=== PATIENT | male | born 1940 | race Caucasian/White ===

== ENCOUNTER 2017-12-05 14:46 | Inpatient (IN) | payer OTHER ==
[~2017-12-05] VITALS: Ht 175.3 cm; Wt 90.4 kg
[2017-12-05 15:37] LABS: Basophils # (auto) 0 uL; Basophils % (auto) 0.4 % (0.0-2.0); Eosinophils # (auto) 0.1 uL; Eosinophils % (auto) 2.3 % (0.0-7.0); Hematocrit 37.9 % (41.0-53.0); Hemoglobin 12.3 g/dL (13.5-17.5); Lymphocytes # (auto) 1.3 uL; Lymphocytes % (auto) 21.5 % (10.0-50.0); Mean Corpuscular Hemoglobin 32.2 pg (28.0-32.0); Mean Corpuscular Hgb Conc. 32.5 g/dL (32.0-36.0); Mean Corpuscular Volume 99.2 fL (80.0-100.0); Monocytes # (auto) 0.5 uL; Monocytes % (auto) 7.5 % (0.0-12.0); Neutrophils # (auto) 4.2 uL; Neutrophils % (auto) 68.3 % (37.0-80.0); Nucleated Red Blood Cells % 0.1 %; Platelet Count (auto) 172 10^3/uL (140-450); Red Blood Cells 3.82 10^6/uL (4.5-5.90); Red Cell Distribution Width 12.8 % (11.8-14.3); White Blood Cell 6.2 10^3/uL (4.4-10.8)
[2017-12-05 16:03] LABS: Alanine Aminotransferase 60 U/L (16-61); Albumin 3.7 g/dL (3.4-5.0); Alkaline Phosphatase 92 U/L (45-117); Anion Gap 7 (5-15); Aspartate Aminotransferase 43 U/L (15-37); BUN/Creatinine Ratio 36.4; Bilirubin, Total 0.3 mg/dL (0.2-1.0); Blood Urea Nitrogen 43 mg/dL (7-18); Calcium 8.4 mg/dL (8.5-10.1); Carbon Dioxide 22 mmol/L (21-32); Chloride 110 mmol/L (98-107); GFR African American 77 mL/min; GFR Non-African American 64 mL/min; Glucose 153 mg/dL (74-106); Magnesium 2.9 mg/dL (1.6-2.6); Sodium 139 mmol/L (136-145); Total Protein 7.5 g/dL (6.4-8.2)
[2017-12-05] MEDS ORDERED: DOPamine 1600MCG/ML D5W 250 ML IV ONE (17:15)
[2017-12-05] MEDS ORDERED: NITROGLYCERIN 0.4 MG SL TAB SL PRN (17:45)
[2017-12-05] MEDS ORDERED: MORPHINE SULFATE 4 MG/ML SYR/VIAL IV PRN (17:45)
[2017-12-05 17:49] LABS: Urine Bacteria NONE SEEN /hpf (None Seen); Urine Blood Negative /uL (Negative); Urine Hyaline Cast FEW /lpf (0 - 2); Urine Mucus FEW (None Seen); Urine Specific Gravity 1.029 (1.001-1.035); Urine WBC 2 /hpf (0 - 3)
[2017-12-05] MEDS ORDERED: IOHEXOL 350 MG/ML 100ML IJ ONE (18:50)
[2017-12-05 19:00] VITALS: BP 153/67
[2017-12-05 20:00] VITALS: BP 152/55
[2017-12-05 21:00] VITALS: BP_SYST 146; BP_SYST 152; BP_DIAS 55; BP_DIAS 69
[2017-12-05 22:00] VITALS: BP 137/66
[2017-12-05 23:00] VITALS: BP 145/73
[2017-12-05] MEDS: DOPamine 1600MCG/ML D5W 250 ML IV SCH (23:23)
[2017-12-06] VITALS (22 sets, daily range): BP systolic 110–155; BP diastolic 44–96
[2017-12-06 05:59] LABS: Basophils # (auto) 0 uL; Basophils % (auto) 0.3 % (0.0-2.0); Eosinophils # (auto) 0 uL; Eosinophils % (auto) 0.2 % (0.0-7.0); Hematocrit 37.9 % (41.0-53.0); Hemoglobin 13.1 g/dL (13.5-17.5); Mean Corpuscular Hemoglobin 33.1 pg (28.0-32.0); Mean Corpuscular Hgb Conc. 34.5 g/dL (32.0-36.0); Monocytes # (auto) 1.3 uL; Monocytes % (auto) 13.9 % (0.0-12.0); Neutrophils # (auto) 7.2 uL; Neutrophils % (auto) 75.6 % (37.0-80.0); Platelet Count (auto) 176 10^3/uL (140-450); Red Blood Cells 3.95 10^6/uL (4.5-5.90); Red Cell Distribution Width 12.7 % (11.8-14.3); White Blood Cell 9.5 10^3/uL (4.4-10.8)
[2017-12-06 06:06] LABS: Anion Gap 9 (5-15); Blood Urea Nitrogen 33 mg/dL (7-18); Calcium 8.7 mg/dL (8.5-10.1); Carbon Dioxide 23 mmol/L (21-32); Chloride 106 mmol/L (98-107); Glucose 151 mg/dL (74-106); Magnesium 2.4 mg/dL (1.6-2.6); Potassium 4.3 mmol/L (3.5-5.1); Sodium 138 mmol/L (136-145)
[2017-12-06 06:09] LABS: BUN/Creatinine Ratio 38.4; GFR African American 111 mL/min; GFR Non-African American 92 mL/min
[2017-12-06 06:38] LABS: INR 1.01 (0.9-1.15); Partial Thromboplastin Time 26.1 sec (22.64-33.71)
[2017-12-06 08:27] LABS: Phosphorus 3.4 mg/dL (2.5-4.90)
[2017-12-06] MEDS: SODIUM CHLORIDE 0.9% 1,000 ML IV SCH ×2 (08:28→17:39)
[2017-12-06] MEDS: PHENYTOIN SODIUM 100 MG CAP PO SCH (08:34)
[2017-12-06] MEDS: DOPamine 1600MCG/ML D5W 250 ML IV SCH (11:49)
[2017-12-06] MEDS: ACETAMINOPHEN 650 mg PER 20 mL UD PO PRN ×2 (12:00→21:18)
[2017-12-06] MEDS ORDERED: LIDOCAINE 2%HCL (LOCAL ANESTH.) INJ 20ML MDV ONE (14:13)
[2017-12-06] MEDS ORDERED: MIDAZOLAM HCL 1MG/1ML-2 ML VIAL ONE (14:24)
[2017-12-06] MEDS ORDERED: fentaNYL CITRATE 100 MCG/2 ML VL ONE (14:24)
[2017-12-06] MEDS ORDERED: VANCOMYCIN HCL 1000 MG VL ONE (14:40)
[2017-12-06] MEDS ORDERED: ceFAZolin 1GM/50ML 50 ML IV ONE (14:41)
[2017-12-06] MEDS ORDERED: VANCOMYCIN 1GM/250ML 250 ML IV ONE (14:45)
[2017-12-06] MEDS ORDERED: PHE100C PO (18:03)
[2017-12-06] MEDS ORDERED: DILT120T8 PO (18:03)
[2017-12-06] MEDS ORDERED: LISI40TA PO (18:03)
[2017-12-06] MEDS ORDERED: ASPI81CH43 PO (18:03)
[2017-12-07] MEDS ORDERED: VANCOMYCIN 1GM/250ML 250 ML IV SCH (02:45)
[2017-12-07 05:01] VITALS: BP 134/61
[2017-12-07] MEDS: ACETAMINOPHEN 650 mg PER 20 mL UD PO PRN (05:06)
[2017-12-07 06:27] LABS: Basophils # (auto) 0 uL; Basophils % (auto) 0.2 % (0.0-2.0); Eosinophils # (auto) 0 uL; Eosinophils % (auto) 0.5 % (0.0-7.0); Hematocrit 30.8 % (41.0-53.0); Hemoglobin 10.7 g/dL (13.5-17.5); Mean Corpuscular Hemoglobin 33.5 pg (28.0-32.0); Mean Corpuscular Hgb Conc. 34.7 g/dL (32.0-36.0); Mean Corpuscular Volume 96.6 fL (80.0-100.0); Monocytes % (auto) 12.5 % (0.0-12.0); Neutrophils # (auto) 5.7 uL; Neutrophils % (auto) 73.8 % (37.0-80.0); Nucleated Red Blood Cells % 0.1 %; Platelet Count (auto) 126 10^3/uL (140-450); Red Blood Cells 3.19 10^6/uL (4.5-5.90); Red Cell Distribution Width 12.6 % (11.8-14.3); White Blood Cell 7.7 10^3/uL (4.4-10.8)
[2017-12-07 06:49] LABS: Calcium 7.9 mg/dL (8.5-10.1); Potassium 3.5 mmol/L (3.5-5.1)
[2017-12-07 08:00] VITALS: BP 122/69
[2017-12-07 09:00] VITALS: BP 122/69
[2017-12-07] MEDS: SODIUM CHLORIDE 0.9% 1,000 ML IV SCH (09:30)
[2017-12-07] MEDS: PHENYTOIN SODIUM 100 MG CAP PO SCH (09:32)
[2017-12-07] MEDS ORDERED: HYDROcodone-ACET 5/325MG TAB PO PRN (10:15)
[2017-12-07 11:15] VITALS: BP 122/69
[2017-12-07 13:00] VITALS: BP_SYST 116; BP_SYST 121; BP_DIAS 53; BP_DIAS 55; BP_DIAS 82
== END 2017-12-07 13:50 | disposition home or self-care (01) | DRG 244 ==
LOC: ER 14:46 → EDBD 14:46 → TELE 14:47 → TELE-EAST 12-06 17:59
PROVIDERS: ADMIT Internal Medicine; ATTEND Internal Medicine
PROC: 0JH606Z Insertion of Pacemaker, Dual Chamber into Chest Subcutaneous Tissue and Fascia, Open Approach (ICD-10-PCS; principal; 2017-12-05)
PROC: 02H63JZ Insertion of Pacemaker Lead into Right Atrium, Percutaneous Approach (ICD-10-PCS; 2017-12-05)
PROC: 02HK3JZ Insertion of Pacemaker Lead into Right Ventricle, Percutaneous Approach (ICD-10-PCS; 2017-12-05)
PROC: B5171ZZ Fluoroscopy of Left Subclavian Vein using Low Osmolar Contrast (ICD-10-PCS; 2017-12-05)
DX: I44.2 Atrioventricular block, complete (principal); G40.909 Epilepsy, unspecified, not intractable, without status epilepticus; I11.9 Hypertensive heart disease without heart failure; E78.00 Pure hypercholesterolemia, unspecified; E78.5 Hyperlipidemia, unspecified; I48.0 Paroxysmal atrial fibrillation; I49.5 Sick sinus syndrome; N40.0 Benign prostatic hyperplasia without lower urinary tract symptoms; R73.9 Hyperglycemia, unspecified; Z79.82 Long term (current) use of aspirin
CPT/HCPCS: 33208; 36415; 71045; 71275; 75820; 80048; 80053; 81001; 83735; 83880; 84100; 84443; 84484; 85025; 85379; 85610; 85730; 93005; 93306; 94761; 96374; 99152; C1785; J0690; J2250

== ENCOUNTER 2019-06-22 00:45 | Emergency (ER) | payer OTHER ==
[~2019-06-22] VITALS: Ht 175.3 cm; Wt 81.6 kg
[~2019-06-22 00:45] MED LIST: ASPI81CH43 PO; DILT120T8 PO; LISI40TA PO; PHE100C PO
[2019-06-22 01:56] LABS: Urine Bacteria FEW /hpf (None Seen); Urine Blood TRACE /uL (Negative); Urine Mucus FEW (None Seen); Urine WBC 76 /hpf (0 - 3)
[2019-06-22 02:02] LABS: Basophils # (auto) 0 uL; Basophils % (auto) 0.1 % (0.0-2.0); Eosinophils # (auto) 0.1 uL; Eosinophils % (auto) 0.9 % (0.0-7.0); Hematocrit 35.3 % (41.0-53.0); Hemoglobin 12.2 g/dL (13.5-17.5); Lymphocytes # (auto) 0.7 uL; Lymphocytes % (auto) 7.1 % (10.0-50.0); Mean Corpuscular Hemoglobin 32.8 pg (28.0-32.0); Mean Corpuscular Hgb Conc. 34.4 g/dL (32.0-36.0); Mean Corpuscular Volume 95.3 fL (80.0-100.0); Monocytes # (auto) 0.9 uL; Monocytes % (auto) 8.4 % (0.0-12.0); Neutrophils # (auto) 8.7 uL; Neutrophils % (auto) 83.5 % (37.0-80.0); Platelet Count (auto) 143 10^3/uL (140-450); White Blood Cell 10.4 10^3/uL (4.4-10.8)
[2019-06-22 02:20] LABS: Albumin 3.7 g/dL (3.4-5.0); BUN/Creatinine Ratio 27.6; Calcium 8.2 mg/dL (8.5-10.1); Potassium 3.9 mmol/L (3.5-5.1)
[2019-06-22 02:22] LABS: Bilirubin, Total 0.5 mg/dL (0.2-1.0)
[2019-06-22] MEDS ORDERED: SODIUM CHLORIDE 0.9% 1,000 ML IVB ONE (07:06)
[2019-06-22] MEDS ORDERED: PROMETHAZINE HCL 25 MG/ML 1ML IV ONE (07:15)
[2019-06-22] MEDS ORDERED: MORPHINE SULFATE 4 MG/ML SYR/VIAL IV ONE (07:15)
[2019-06-22] MEDS ORDERED: cefTRIAXone 1GM/50ML D5W 50 ML IV ONE (07:15)
[2019-06-22 10:14] VITALS: BP 94/70
== END 2019-06-22 10:32 | disposition home or self-care (01) ==
LOC: EDBD 00:45 → ER 00:45
DX: K52.9 Noninfective gastroenteritis and colitis, unspecified (principal); N39.0 Urinary tract infection, site not specified; K90.49 Malabsorption due to intolerance, not elsewhere classified; I10 Essential (primary) hypertension; G40.909 Epilepsy, unspecified, not intractable, without status epilepticus; E78.5 Hyperlipidemia, unspecified; Z79.899 Other long term (current) drug therapy; Z95.0 Presence of cardiac pacemaker
CPT/HCPCS: 36415; 80053; 81001; 83690; 85025; 93005; 96365; 96375; 99284; J0696; J2270; J2550; J7030

== ENCOUNTER 2023-06-25 19:05 | Emergency (ER) | payer OTHER ==
[~2023-06-25] VITALS: Ht 175.3 cm; Wt 78.2 kg
[~2023-06-25 19:05] MED LIST changes: -LISI40TA PO; +LISI40TA16 PO; -PHE100C PO; +PHEN1CAP60 PO
[2023-06-25 21:29] VITALS: BP 167/78; PULSE 69; RESP 18; TEMP 98; O2SAT 98
== END 2023-06-25 21:35 | disposition home or self-care (01) ==
LOC: ER 19:05
DX: S01.81XA Laceration without foreign body of other part of head, initial encounter (principal); E78.5 Hyperlipidemia, unspecified; I10 Essential (primary) hypertension; Z87.440 Personal history of urinary (tract) infections; W18.09XA Striking against other object with subsequent fall, initial encounter; Y93.89 Activity, other specified; Y92.89 Other specified places as the place of occurrence of the external cause; Y99.8 Other external cause status
CPT/HCPCS: 70450

== ENCOUNTER 2024-12-07 02:05 | Emergency (ER) | payer OTHER ==
[~2024-12-07] VITALS: Ht 175.3 cm; Wt 79.5 kg
[~2024-12-07 02:05] MED LIST changes: +PHEN1CAP38 PO; -PHEN1CAP60 PO
[2024-12-07] MEDS: IPRATROPIUM BROM 0.5 MG/2.5ML INH SOL NEB ONE (03:14)
[2024-12-07] MEDS: ALBUTEROL SULF 2.5 MG/0.5ML(0.5%) NEB SOLN NEB ONE (03:14)
--- NOTE | 2024-12-07 03:19 | ED.PDOC ---
History of Present Illness HPI Comments 84-year-old male came to ER via EMS for shortness of breath. Patient had a ground level fall a month ago, fell flat on his face, and since then patient has been having nasal pain. Patient never went for a checkup regarding this fall. Persistent nasal pain and nasal congestion which worsened the past few days, with wheezing, nasal tenderness and shortness of breath. Patient saturating at 96% on room air. Chief Complaint: Shortness of Breath Time Seen by MD: 03:19 Primary Care Provider: ANGEL Menendez Notes: Medical Affairs Leader Notes Allergies: Coded Allergies: NO KNOWN ALLERGIES (Unverified , 12/05/17) Home Meds Reported Medications Phenytoin Sodium (DILANTIN CAPSULE) 100 Mg Cp, 300 MG PO DAILY for 30 Days 12/06/17 Aspirin (Asa) 81 Mg Ch, 325 MG PO DAILY 12/06/17 Lisinopril (Lisinopril) 40 Mg Tab, 40 MG PO DAILY for 30 Days, MG 12/06/17 Diltiazem Hcl (Cardizem) 120 Mg Tab, 240 MG PO DAILY, TAB 12/06/17 Information Source: Patient Mode of Arrival: EMS Severity: Moderate Timing: Days Duration: Since onset Past Medical History PAST MEDICAL HISTORY: AFIB, High Lipids, HTN, Seizures, UTI'S Surgical History: Pacemaker Family History Family History: Reviewed,noncontributory to illness Social History Smoker: Non-Smoker Alcohol: Denies ETOH Use Drugs: Denies Drug Use Lives In: Home Constitutional: denies: chills, diaphoresis, fatigue, fever, malaise, sweats, weakness, others EENTM: reports: nose congestion, nose pain; denies: blurred vision, double vision, ear bleeding, ear discharge, ear drainage, ear pain, ear ringing, eye pain, eye redness, hearing loss, mouth pain, mouth swelling, nasal discharge, nose bleeding, photophobia, tearing, throat pain, throat swelling, voice changes, others Respiratory: reports: orthopnea, SOB at rest, shortness of breath, wheezing; denies: cough, hemoptysis, SOB with excertion, stridor, others Cardiovascular: denies: chest pain, dizzy spells, diaphoresis, Dyspnea on exertion, edema, irregular heart beat, left arm pain, lightheadedness, palpitations, PND, syncope, others Gastrointestinal: denies: abdomen distended, abdominal pain, blood streaked bowels, constipated, diarrhea, dysphagia, difficulty swallowing, hematemesis, melena, nausea, poor appetite, poor fluid intake, rectal bleeding, rectal pain, vomiting, others Genitourinary: denies: burning, dysuria, flank pain, frequency, hematuria, incontinence, penile discharge, penile sore, pain, testicle pain, testicle swelling, urgency, others Neurological: denies: dizziness, fainting, headache, left sided numbness, left sided weakness, numbness, paresthesia, pre-existing deficit, right sided numbness, right sided weakness, seizure, speech problems, tingling, tremors, weakness, others Musculoskeletal: denies: back pain, gout, joint pain, joint swelling, muscle pain, muscle stiffness, neck pain, others Integumetry: denies: bruises, change in color, change in hair/nails, dryness, laceration, lesions, lumps, rash, wounds, others Allergic/Immunocompromised: denies: Difficulty Healing, Frequent Infections, Hives, Itching, others Hematologic/Lymphatic: denies: anemia, blood clots, easy bleeding, easy bruising, swollen glands, others Endocrine: denies: excessive hunger, excessive sweating, excessive thirst, excessive urination, flushing, intolerance to cold, intolerance to heat, unexplained weight gain, unexplained weight loss, others Psychiatric: denies: anxiety, bipolar disorder, depression, hopeless, panic disorder, schizophrenia, sleepless, suicidal, others Physical Exam General Appearance: Moderate Distress, Normal HEENT: Normal ENT Inspection, Pharynx Normal, TMs Normal Neck: Full Range of Motion, Non-Tender, Normal, Normal Inspection Respiratory: Chest Non-Tender, Lungs Clear, No Accessory Muscle Use, No Respiratory Distress, Normal Breath Sounds Cardiovascular: No Edema, No JVD, No Murmur, No Gallop, Normal Peripheral Pulses, Regular Rate/Rhythm Breast Exam: Deferred Gastrointestinal: No Organomegaly, Non Tender, No Pulsatile Mass, Normal Bowel Sounds, Soft Genitalia: Deferred Pelvic: Deferred Rectal: Deferred Extremities: No calf tenderness, Normal capillary refill, Normal inspection, Normal range of motion, Non-tender, No pedal edema Musculoskeletal : Apperance: Normal 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 Was a procedure done?: No EKG EKG : Pulse Rate (adult): 76 Cardiac Rhythm: Paced Differential Dx Considerations may include: Nasal congestion, nasal fracture, pneumonia, upper respiratory infection X-Ray, Labs, Meds, VS Vital Signs Date Time Temp Pulse Resp B/P (MAP) Pulse Ox O2 Delivery O2 Flow Rate FiO2 12/07/24 03:19 76 12/07/24 03:14 20 96 Room Air* 0 21 12/07/24 02:22 16 96 Room Air* 0 21 12/07/24 02:12 98.4 69 16 158/75 (102) 96 12/07/24 02:12 76 Current Medications Medications (Trade) Dose Ordered Sig/Adriana Route Start Time Stop Time Status Last Admin Albuterol (Ventolin Medneb) 5 mg ONCE ONCE NEB 12/07/24 03:15 12/07/24 03:16 DC 12/07/24 03:14 Ipratropium [place] (Atrovent Medneb) 0.5 mg ONCE ONCE NEB 12/07/24 03:15 12/07/24 03:16 DC 12/07/24 03:14 Exam: CT MAXILLOFACIAL WITHOUT History: fall Comparison Study: CT head 06/25/2023 TECHNIQUE: Noncontrast CT imaging of the maxillofacial region was performed with coronal and sagittal reformatted images. Radiation optimization: All CT scans at this facility use at least one of these dose optimization techniques: automated exposure control mA and/or kV adjustment per patient size (includes targeted exams where dose is matched to clinical indication) or iterative reconstruction. Radiation Dose Information: CT Dose: CTDI volume is 65.4 mGy. Dose-length product is 1431.2 mGy*cm FINDINGS: Evaluation of solid organs is limited due to lack of intravenous contrast use. Findings: No discrete fracture. The nasal bone is intact. The globes appear grossly intact. No significant fat stranding. Mild mucosal sinus thickening of the maxillary sinuses and ethmoid air cells with occlusion of the left frontoethmoid recess and left ostiomeatal unit. Mastoid air cells are well aerated. Degenerative changes of the visualized cervical spine. Bilateral carotid artery calcifications. Visualized intracranial structures demonstrate cerebral atrophy with cavum septum pellucidum IMPRESSION: 1. No acute findings. 2. Ethmoid and maxillary sinus disease. Patient was given DuoNeb treatment secondary to of wheezes. Solu-Medrol in Rocephin was given for possible sinusitis. The patient will be discharged with Augmentin Medrol dose pack and Flonase prescription. He will take Afrin [id number]. Time of 1ST Reevaluation: 03:13 Reevaluation 1ST: Unchanged Patient Education/Counseling: Diagnosis, Treatment Family Education/Counseling: No Family Present Departure 1 Departure Time of Disposition: 05:07 Impression: Primary Impression: Ground-level fall Additional Impression: Sinusitis Qualified Codes: J01.20 - Acute ethmoidal sinusitis, unspecified Disposition: HOME / SELF CARE / HOMELESS Condition: Stable Additional Instructions: Reassessed patient, vital signs stable. Denies any new symptoms. Patient is able to tolerate PO and ambulate/be mobile at their baseline without concern. Risks and benefits of all medications given or prescribed, if any, discussed. All lab work, imaging and diagnostic studies were reviewed by me. The patient was counseled extensively on my clinical impression, diagnosis, expected course of the disease, and plan, including their follow-up care. Will discharge patient. Patient instructed to follow up with Primary Care Physician within 24-48 hours. Strict return precautions given for further exacerbation of symptoms or for new symptoms. The patient was given the opportunity to ask questions and all questions were answered by myself and the nursing/tech staff. Patient is in agreement with the care plan. The patient verbally expressed understanding of th e discharge instructions, including the reasons to return to the Emergency Department. The patient can have Afrin [id number]. e-Prescriptions Amoxicillin & Pot Clavulanate (AUGMENTIN TABLET) 875 Mg Tb 875 MG PO BID, #1 TAB Prov: THOM WISE MD 12/07/24 Fluticasone Propionate (Nasal) (Flonase Allergy Relief) 50 Mcg/Act Spr 50 MCG NA 2XW, #1 SPRAY Prov: THOM WISE MD 12/07/24 Discharged With: Self Critical Care Note Critical Care Time?: Yes (35 min-critical care time only) Critical care comment: Shortness of breath Stability Stability form required: No Heart Score Heart Score: Heart Score Response (Comments) Value History N/A 0 EKG N/A 0 Age N/A 0 Risk Factors N/A 0 Troponin N/A 0 Total 0 I personally scribed for THOM WISE MD ([email or web address]) on 12/07/24 at 03:19. El ectronically submitted by Sagar Hidalgo ([email or web address]). I personally scribed for THOM WISE MD ([email or web address]) on 12/07/24 at 05:01. Electronically submitted by Sagar Hidalgo ([email or web address]). THOM WISE MD Dec 07, 2024 03:19
--- NOTE | 2024-12-07 04:44 | DVH ---
Exam: CT MAXILLOFACIAL WITHOUT History: fall Comparison Study: CT head 06/25/2023 TECHNIQUE: Noncontrast CT imaging of the maxillofacial region was performed with coronal and sagittal reformatted images. Radiation optimization: All CT scans at this facility use at least one of these dose optimization alok hniques: automated exposure control mA and/or kV adjustment per patient size (includes targeted exam s where dose is matched to clinical indication) or iterative reconstruction. Radiation Dose Information: CT Dose: CTDI volume is 65.4 mGy. Dose-length product is 1431.2 mGy*cm FINDINGS: Evaluation of solid organs is limited due to lack of intravenous contrast use. Findings: No discrete fracture. The nasal bone is intact. The globes appear grossly intact. No significant fat stranding. Mild mucosal sinus thickening of the maxillary sinuses and ethmoid air cells with occlusi on of the left frontoethmoid recess and left ostiomeatal unit. Mastoid air cells are well aerated. De generative changes of the visualized cervical spine. Bilateral carotid artery calcifications. Visuali zed intracranial structures demonstrate cerebral atrophy with cavum septum pellucidum IMPRESSION: 1. No acute findings. 2. Ethmoid and maxillary sinus disease.
[2024-12-07 05:00] VITALS: BP 143/71; PULSE 79; RESP 16; TEMP 97.7; O2SAT 96
[2024-12-07] MEDS ORDERED: AUG875T PO (05:10)
[2024-12-07] MEDS ORDERED: FLUT1SPR5 (05:10)
[2024-12-07] MEDS: cefTRIAXone 2GM/50ML D5W 50 ML IV ONE (05:11)
[2024-12-07] MEDS: methylPREDNISolone SOD SUCC 125 MG/2 ML VL IV ONE (05:12)
[2024-12-07] MEDS: ACETAMINOPHEN 325 MG TAB PO ONE (05:38)
--- NOTE | 2024-12-07 06:34 | ECG ---
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
== END 2024-12-07 05:49 | disposition home or self-care (01) ==
LOC: EDUNIT# 02:05 → EDSEX 02:05 → ER 02:05 → EDBD 02:05 → ER 05:49
DX: J32.9 Chronic sinusitis, unspecified (principal); I10 Essential (primary) hypertension; Z79.82 Long term (current) use of aspirin; Z79.899 Other long term (current) drug therapy; Z87.440 Personal history of urinary (tract) infections; Z95.0 Presence of cardiac pacemaker; W18.30XA Fall on same level, unspecified, initial encounter; Y93.89 Activity, other specified; Y92.89 Other specified places as the place of occurrence of the external cause; Y99.8 Other external cause status
CPT/HCPCS: 70486; 93005; 94640; 96365; 96375; 99285; J0696; J2919

== ENCOUNTER 2025-02-19 16:46 | Emergency (ER) | payer OTHER ==
[~2025-02-19] VITALS: Ht 175.3 cm; Wt 80.4 kg
[~2025-02-19 16:46] MED LIST changes: +AUG875T PO; +FLUT1SPR5
--- NOTE | 2025-02-19 18:30 | ECG ---
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
--- NOTE | 2025-02-19 18:47 | ED.PDOC ---
History of Present Illness HPI Comments 84-year-old male came to ER for generalized weakness. Patient has history of hypertension, Afib, status post pacemaker insertion 2017. States for the past 3 weeks, has been having intermittent episodes of weakness, especially during late afternoons, after working in the yard. About 2 hours ago, noted generalized weakness and fatigability. Noted slight bradycardia on 60s, with fluctuating blood pressure levels. Upon arrival, blood pressure was 126/69 mm Hg. Denies any acute chest pains shortness of breath Chief Complaint: Weakness Time Seen by MD: 18:46 Primary Care Provider: ANGEL Menendez Notes: Nurses Notes Allergies: Coded Allergies: NO KNOWN ALLERGIES (Unverified , 12/05/17) Home Meds Active Scripts Amoxicillin & Pot Clavulanate (AUGMENTIN TABLET) 875 Mg Tb, 875 MG PO BID, #20 T AB Prov:THOM WISE MD 12/07/24 Amoxicillin & Pot Clavulanate (AUGMENTIN TABLET) 875 Mg Tb, 875 MG PO BID, #1 TAB Prov:THOM WISE MD 12/07/24 Fluticasone Propionate (Nasal) (Flonase Allergy Relief) 50 Mcg/Act Spr, 50 MCG NA 2XW, #1 SPRAY Prov:THOM WISE MD 12/07/24 Reported Medications Phenytoin Sodium (DILANTIN CAPSULE) 100 Mg Cp, 300 MG PO DAILY for 30 Days 12/06/17 Aspirin (Asa) 81 Mg Ch, 325 MG PO DAILY 12/06/17 Lisinopril (Lisinopril) 40 Mg Tab, 40 MG PO DAILY for 30 Days, MG 12/06/17 Diltiazem Hcl (Cardizem) 120 Mg Tab, 240 MG PO DAILY, TAB 12/06/17 Information Source: Patient Mode of Arrival: Ambulatory Severity: Moderate Timing: Weeks Duration: Intermittent Past Medical History PAST MEDICAL HISTORY: AFIB, High Lipids, HTN, Seizures, UTI'S Surgical History: Pacemaker Family History Family History: Reviewed,noncontributory to illness Social History Smoker: Non-Smoker Alcohol: Denies ETOH Use Drugs: Denies Drug Use Lives In: Home Constitutional: reports: fatigue, weakness; denies: chills, diaphoresis, fever, malaise, sweats, others EENTM: denies: blurred vision, double vision, ear bleeding, ear discharge, ear drainage, ear pain, ear ringing, eye pain, eye redness, hearing loss, mouth pain, mouth swelling, nasal discharge, nose bleeding, nose congestion, nose pain, photophobia, tearing, throat pain, throat swelling, voice changes, others Respiratory: denies: cough, hemoptysis, orthopnea, SOB at rest, shortness of breath, SOB with excertion, stridor, wheezing, others Cardiovascular: denies: chest pain, dizzy spells, diaphoresis, Dyspnea on exertion, edema, irregular heart beat, left arm pain, lightheadedness, palpitations, PND, syncope, others Gastrointestinal: denies: abdomen distended, abdominal pain, blood streaked bowels, constipated, diarrhea, dysphagia, difficulty swallowing, hematemesis, melena, nausea, poor appetite, poor fluid intake, rectal bleeding, rectal pain, vomiting, others Genitourinary: denies: burning, dysuria, flank pain, frequency, hematuria, incontinence, penile discharge, penile sore, pain, testicle pain, testicle swelling, urgency, others Neurological: denies: dizziness, fainting, headache, left sided numbness, left sided weakness, numbness, paresthesia, pre-existing deficit, right sided numbness, right sided weakness, seizure, speech problems, tingling, tremors, weakness, others Musculoskeletal: denies: back pain, gout, joint pain, joint swelling, muscle pain, muscle stiffness, neck pain, others Integumetry: denies: bruises, change in color, change in hair/nails, dryness, laceration, lesions, lumps, rash, wounds, others Allergic/Immunocompromised: denies: Difficulty Healing, Frequent Infections, Hives, Itching, others Hematologic/Lymphatic: denies: anemia, blood clots, easy bleeding, easy bruising, swollen glands, others Endocrine: denies: excessive hunger, excessive sweating, excessive thirst, excessive urination, flushing, intolerance to cold, intolerance to heat, unexplained weight gain, unexplained weight loss, others Psychiatric: denies: anxiety, bipolar disorder, depression, hopeless, panic disorder, schizophrenia, sleepless, suicidal, others Physical Exam General Appearance: No Apparent Distress, Normal HEENT: Normal ENT Inspection, Pharynx Normal, TMs Normal Neck: Full Range of Motion, Non-Tender, Normal, Normal Inspection Respiratory: Chest Non-Tender, Lungs Clear, No Accessory Muscle Use, No Respiratory Distress, Normal Breath Sounds Cardiovascular: No Edema, No JVD, No Murmur, No Gallop, Normal Peripheral Pulses, Regular Rate/Rhythm Breast Exam: Deferred Gastrointestinal: No Organomegaly, Non Tender, No Pulsatile Mass, Normal Bowel Sounds, Soft Genitalia: Deferred Pelvic: Deferred Rectal: Deferred Extremities: No calf tenderness, Normal capillary refill, Normal inspection, Normal range of motion, Non-tender, No pedal edema Musculoskeletal : Apperance: Normal 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 Was a procedure done?: No EKG EKG : Pulse Rate (adult): 70 Cardiac Rhythm: NSR Comments Prolong TN interval Differential Dx Considerations may include: Anemia, electrolyte imbalance, weakness, dehydration X-Ray, Labs, Meds, VS Vital Signs Date Time Temp Pulse Resp B/P (MAP) Pulse Ox O2 Delivery O2 Flow Rate FiO2 02/19/25 18:47 70 02/19/25 18:00 98.2 85 18 126/69 (88) 96 98.2 Lab Test 02/19/25 21:57 02/19/25 19:59 02/19/25 19:02 02/19/25 18:20 Range/Units Troponin I High Sensitivity Pending 6 6 </=54 ng/L White Blood Count 7.4 4.4-10.8 10^3/uL Red Blood Count 3.91 L 4.5-5.90 10^6/uL Hemoglobin 12.5 L 13.5-17.5 g/dL Hematocrit 36.8 L 41.0-53.0 % Mean Corpuscular Volume 94.3 80.0-100.0 fL Mean Corpuscular Hemoglobin 31.9 28.0-32.0 pg Mean Corpuscular Hemoglobin Concent 33.8 32.0-36.0 g/dL Red Cell Distribution Width 13.5 11.8-14.3 % Platelet Count 219 140-450 10^3/uL Mean Platelet Volume 7.7 6.9-10.8 fL Neutrophils (%) (Auto) 52.1 37.0-80.0 % Lymphocytes (%) (Auto) 30.7 10.0-50.0 % Monocytes (%) (Auto) 10.9 0.0-12.0 % Eosinophils (%) (Auto) 6.1 0.0-7.0 % Basophils (%) (Auto) 0.2 0.0-2.0 % Neutrophils # (Auto) 3.8 1.6-8.6 10 ^3/uL Lymphocytes # (Auto) 2.3 0.4-5.4 10 ^3/uL Monocytes # (Auto) 0.8 0-1.3 10 ^3/uL Eosinophils # (Auto) 0.5 0-0.8 10 ^3/uL Basophils # (Auto) 0 0-0.2 10 ^3/uL Nucleated Red Blood Cells 0.0 % Sodium Level 137 136-145 mmol/L Potassium Level 4.6 3.5-5.1 mmol/L Chloride Level 104 98-107 mmol/L Carbon Dioxide Level 25 20-31 mmol/L Anion Gap 8 5-15 Blood Urea Nitrogen 34 H 9-23 mg/dL Creatinine 1.20 0.700-1.30 mg/dL Glomerular Filtration Rate Calc 60 >90 mL/min BUN/Creatinine Ratio 28.3 H 10.0-20.0 Serum Glucose 95 74-106 mg/dL Lactic Acid Level 1.0 0.4-2.0 mmol/L Calcium Level 9.8 8.7-10.4 mg/dL Urine Color Light-yellow Yellow Urine Clarity Clear Clear Urine pH 5.5 5.0-9.0 Urine Specific [place] 1.019 1.001-1.035 Urine Protein Negative Negative Urine Ketones Negative Negative Urine Blood Negative Negative /uL Urine Nitrite Negative Negative Urine Bilirubin Negative Negative Urine Urobilinogen Normal Negative mg/dL Urine Leukocyte Esterase Negative Negative /uL Urine RBC 2 0 - 3 /hpf Urine Microscopic WBC < 1 0-3 /HPF Urine Squamous Epithelial Cells Few <5 /hpf Urine Bacteria None seen None Seen /hpf Urine Hyaline Casts Few 0 - 2 /lpf Urine Mucus Few None Seen Urine Glucose Normal Normal mg/dL Time of 1ST Reevaluation: 18:41 Reevaluation 1ST: Unchanged Patient Education/Counseling: Diagnosis, Treatment Family Education/Counseling: No Family Present Departure 1 Departure Time of Disposition: 22:15 (Patient presenting with palpitations. EKG nonischemic. Chest x-ray is benign. Labs are benign. We will discharge patient with outpatient follow up) Impression: Primary Impression: Palpitations Disposition: HOME / SELF CARE / HOMELESS Condition: Stable Additional Instructions: Your workup today was benign including normal labs, normal x-ray. It is important to follow up with the regular doctor. If your symptoms worsen or you have any other concerns please return to the em ergency room. Discharged With: Self Critical Care Note Critical Care Time?: No Stability Stability form required: No Heart Score Heart Score: Heart Score Response (Comments) Value History N/A 0 EKG N/A 0 Age N/A 0 Risk Factors N/A 0 Troponin N/A 0 Total 0 I personally scribed for CASIMIRO SCHMIDT MD ([email or web address]) on 02/19/25 at 18:47. Electronically submitted by Sagar Hidalgo ([email or web address]). CASIMIRO SCHMIDT MD February 19, 2025 18:47
[2025-02-19 19:03] LABS: Urine Bacteria None Seen /hpf (None Seen)
[2025-02-19 19:12] LABS: Urine Blood Negative /uL (Negative); Urine Clarity Clear (Clear); Urine Color Light-Yellow (Yellow); Urine Hyaline Cast FEW /lpf (0 - 2); Urine Mucus FEW (None Seen); Urine Protein, UAD Negative (Negative); Urine Specific Gravity 1.019 (1.001-1.035); Urine Squamous Epithelial Cell FEW /hpf (<5); Urine Urobilinogen Normal (Negative); Urine WBC < 1 /HPF (0-3); Urine pH 5.5 (5.0-9.0)
[2025-02-19 19:23] LABS: Basophils # (auto) 0 10 ^3/uL (0-0.2); Basophils % (auto) 0.2 % (0.0-2.0); Eosinophils # (auto) 0.5 10 ^3/uL (0-0.8); Eosinophils % (auto) 6.1 % (0.0-7.0); Hematocrit 36.8 % (41.0-53.0); Hemoglobin 12.5 g/dL (13.5-17.5); Lymphocytes # (auto) 2.3 10 ^3/uL (0.4-5.4); Lymphocytes % (auto) 30.7 % (10.0-50.0); Mean Corpuscular Hemoglobin 31.9 pg (28.0-32.0); Mean Corpuscular Hgb Conc. 33.8 g/dL (32.0-36.0); Mean Corpuscular Volume 94.3 fL (80.0-100.0); Monocytes # (auto) 0.8 10 ^3/uL (0-1.3); Monocytes % (auto) 10.9 % (0.0-12.0); Neutrophils # (auto) 3.8 10 ^3/uL (1.6-8.6); Neutrophils % (auto) 52.1 % (37.0-80.0); Platelet Count (auto) 219 10^3/uL (140-450); Red Blood Cells 3.91 10^6/uL (4.5-5.90); Red Cell Distribution Width 13.5 % (11.8-14.3); White Blood Cell 7.4 10^3/uL (4.4-10.8)
--- NOTE | 2025-02-19 19:23 | DVH ---
CHEST RADIOGRAPH Indication: generalized weakness Technique: Single frontal view of the chest was obtained COMPARISON: None FINDINGS: Lines and Tubes: Dual-lead pacemaker overlying left chest wall. Lungs: Clear Pleura: No effusion. No pneumothorax. Cardiomediastinal contours: Unremarkable Bones: Unremarkable IMPRESSION: No acute disease.
[2025-02-19 19:30] LABS: Chloride 104 mmol/L (98-107); Potassium 4.6 mmol/L (3.5-5.1); Sodium 137 mmol/L (136-145)
[2025-02-19 19:31] LABS: Anion Gap 8 (5-15); Carbon Dioxide 25 mmol/L (20-31)
[2025-02-19 19:32] LABS: Calcium 9.8 mg/dL (8.7-10.4)
[2025-02-19 19:36] LABS: Glucose 95 mg/dL (74-106)
[2025-02-19 19:37] LABS: BUN/Creatinine Ratio 28.3 (10.0-20.0)
[2025-02-19 19:41] LABS: Blood Urea Nitrogen 34 mg/dL (9-23)
[2025-02-19 22:05] VITALS: BP 152/59; PULSE 74; RESP 18; TEMP 98.1; O2SAT 100
== END 2025-02-19 22:36 | disposition home or self-care (01) ==
LOC: ER 16:49
DX: R00.2 Palpitations (principal); R53.1 Weakness; I10 Essential (primary) hypertension; I48.91 Unspecified atrial fibrillation; E78.5 Hyperlipidemia, unspecified; Z95.0 Presence of cardiac pacemaker; Z79.82 Long term (current) use of aspirin; Z79.899 Other long term (current) drug therapy
CPT/HCPCS: 36415; 71045; 80048; 81001; 83605; 84484; 85025; 93005

== ENCOUNTER 2025-10-16 12:26 | Emergency (ER) | payer OTHER ==
[~2025-10-16] VITALS: Ht 175.3 cm; Wt 79.0 kg
[2025-10-16 12:36] VITALS: BP 121/67; PULSE 76; RESP 16; TEMP 98; O2SAT 95
--- NOTE | 2025-10-16 13:47 | ED.PDOC ---
History of Present Illness(SKN HPI Comments A 85 YEAR OLD MALE PRESENTS TO THE ED WITH COMPLAINT OF RASH OF RIGHT FOREARM. PATIENT STATES HE HAS BEEN A RASH ON HIS RIGHT FOREARM FOR THE PAST 10 DAYS. PATIENT REPORTS HE WENT TO AN URGENT CARE 8 DAYS AGO WHERE HE RECEIVED A PRESCRIPTION FOR BACTROBAN OINTMENT AND KEFLEX, BUT NOTES THERE HAS BEEN NO IMPROVEMENT IN HIS SYMPTOMS. PATIENT DENIES FEVER, CHILLS, SHORTNESS OF BREATH, CHEST PAIN, ABDOMINAL PAIN, NAUSEA, VOMITING, HEADACHE, OR OTHER COMPLAINTS. NO OTHER SYMPTOMS OR MODIFYING FACTORS AT THIS TIME. PATIENT IS ALERT, ORIENTED X 4, AND HAS STEADY GAIT. Chief Complaint: Rash Time Seen by MD: 12:34 Primary Care Provider: BHAVANA History of Present Illness: Nurses Notes, Medications, Allergies Allergies: Coded Allergies: NO KNOWN ALLERGIES (Unverified , 12/05/17) Home Meds Active Scripts Fluocinonide (Lidex) 0.05 % Cre, 1 APPLIC TOP BID, #60 GRAMS Prov:TRACEY VELASCO 10/16/25 Clindamycin Hcl (Clindamycin Hcl) 300 Mg Cap, 1 CAP PO TID, #24 CAP Prov:TRACEY VELASCO 10/16/25 Amoxicillin & Pot Clavulanate (AUGMENTIN TABLET) 875 Mg Tb, 875 MG PO BID, #20 TAB Prov:THOM WISE MD 12/07/24 Amoxicillin & Pot Clavulanate (AUGMENTIN TABLET) 875 Mg Tb, 875 MG PO BID, #1 TAB Prov:THOM WISE MD 12/07/24 Fluticasone Propionate (Nasal) (Flonase Allergy Relief) 50 Mcg/Act Spr, 50 MCG NA 2XW, #1 SPRAY Prov:THOM WISE MD 12/07/24 Reported Medications Phenytoin Sodium (DILANTIN CAPSULE) 100 Mg Cp, 300 MG PO DAILY for 30 Days 12/06/17 Aspirin (Asa) 81 Mg Ch, 325 MG PO DAILY 12/06/17 Lisinopril (Lisinopril) 40 Mg Tab, 40 MG PO DAILY for 30 Days, MG 12/06/17 Diltiazem Hcl (Cardizem) 120 Mg Tab, 240 MG PO DAILY, TAB 12/06/17 Information Source: Patient Mode of Arrival: Ambulatory Severity: Moderate Timing: Days Duration: Since onset, Days Prehospital treatment: None Location: Arm (RIGHT FOREARM) Mechanism: Spontaneous Onset Developed: Rash Occurence: Indoors Object: None Condition of Object: None Retained Foreign Body: No Wound Type: None Immunization Status of Animal: NA Tetanus: Unknown History of: None Associated Signs and Symptoms: Redness Past Medical History PAST MEDICAL HISTORY: AFIB, High Lipids, HTN, Seizures, UTI'S Surgical History: Pacemaker Family History Family History: Reviewed,noncontributory to illness Social History Smoker: Non-Smoker Alcohol: Denies ETOH Use Drugs: Denies Drug Use Lives In: Home Constitutional: denies: chills, diaphoresis, fatigue, fever, malaise, sweats, weakness, others EENTM: denies: blurred vision, double vision, ear bleeding, ear discharge, ear drainage, ear pain, ear ringing, eye pain, eye redness, hearing loss, mouth pain, mouth swelling, nasal discharge, nose bleeding, nose congestion, nose pain, photophobia, tearing, throat pain, throat swelling, voice changes, others Respiratory: denies: cough, hemoptysis, orthopnea, SOB at rest, shortness of breath, SOB with excertion, stridor, wheezing, others Cardiovascular: denies: chest pain, dizzy spells, diaphoresis, Dyspnea on exertion, edema, irregular heart beat, left arm pain, lightheadedness, palpitations, PND, syncope, others Gastrointestinal: denies: abdomen distended, abdominal pain, blood streaked bowels, constipated, diarrhea, dysphagia, difficulty swallowing, hematemesis, melena, nausea, poor appetite, poor fluid intake, rectal bleeding, rectal pain, vomiting, others Genitourinary: denies: burning, dysuria, flank pain, frequency, hematuria, incontinence, penile discharge, penile sore, pain, testicle pain, testicle swelling, urgency, others Neurological: denies: dizziness, fainting, headache, left sided numbness, left sided weakness, numbness, paresthesia, pre-existing deficit, right sided numbness, right sided weakness, seizure, speech problems, tingling, tremors, weakness, others Musculoskeletal: denies: back pain, gout, joint pain, joint swelling, muscle pain, muscle stiffness, neck pain, others Integumetry: reports: rash (RASH OF RIGHT FOREARM), wounds; denies: bruises, change in color, change in hair/nails, dryness, laceration, lesions, lumps, others Allergic/Immunocompromised: denies: Difficulty Healing, Frequent Infections, Hives, Itching, others Hematologic/Lymphatic: denies: anemia, blood clots, easy bleeding, easy bruising, swollen glands, others Endocrine: denies: excessive hunger, excessive sweating, excessive thirst, excessive urination, flushing, intolerance to cold, intolerance to heat, unexplained weight gain, unexplained weight loss, others Psychiatric: denies: anxiety, bipolar disorder, depression, hopeless, panic disorder, schizophrenia, sleepless, suicidal, others All Other Systems: Reviewed and Negative Physical Exam General Appearance: No Apparent Distress, Normal HEENT: Normal ENT Inspection, PERRL/EOMI, Pharynx Normal, TMs Normal Neck: Full Range of Motion, Non-Tender, Normal, Normal Inspection Respiratory: Chest Non-Tender, Lungs Clear, No Accessory Muscle Use, No Respiratory Distress, Normal Breath Sounds Cardiovascular: No Edema, No JVD, No Murmur, No Gallop, Normal Peripheral Pulses, Regular Rate/Rhythm Breast Exam: Deferred Gastrointestinal: No Organomegaly, Non Tender, No Pulsatile Mass, Normal Bowel Sounds, Soft Genitalia: Deferred Pelvic: Deferred Rectal: Deferred Extremities: No calf tenderness, Normal capillary refill, Normal inspection, Normal range of motion, Non-tender, No pedal edema Musculoskeletal : Apperance: Normal Neurologic: Alert, range technician II-XII nml as Tested, No Motor Deficits, Normal Affect, Normal Mood, No Sensory Deficits Cerebellar Function: Normal Reflexes: Normal Skin: Dry, Normal Color, Rash (PAPULAR AND MACULAR SKIN RASH ON RIGHT INNER FOREARM, MILD REDNESS AND TENDERNESS, NO OPEN WOUND SEEN. ), Warm Peripheral Pulses: 2+ carotid (R), 2+ carotid (L), 2+ Radial (R), 2+ Radial (L) Lymphatic: No Adenopathy Was a procedure done? Was a procedure done?: No Differential Diagnosis (INTG) Differential Diagnosis: N/A Differential Diagnosis: Atopic dermatitis, Contact Dermatitis, Impetigo, Intertrigo, Tinea, Urticaria Differential Diagnosis: N/A Abscess: N/A Differential Diagnosis: N/A X-Ray, Labs, Meds, VS Vital Signs Date Time Temp Pulse Resp B/P (MAP) Pulse Ox O2 Delivery O2 Flow Rate FiO2 10/16/25 12:36 98.0 76 16 121/67 95 98.0 10/16/25 12:36 98.0 76 16 121/67 (85) 95 98.0 X-Ray, Labs, Meds, VS Comment EXTERNAL MEDICAL RECORDS REVIEWED: [NONE] INDEPENDENT HISTORIANS: [NONE] SOCIAL DETERMINANTS OF HEALTH: [NONE] LABS ORDERED: NONE REVIEWED AND INTERPRETED RESULTS: NONE IMAGING ORDERED: NONE TREATMENTS ORDERED: NONE PROCEDURES PERFORMED: NONE CRITICAL CARE TIME: NONE I HAVE DISCUSSED THE PATIENT WITH THE ATTENDING PHYSICIAN DR. RUSSELL AND HE AGREES WITH THE PATIENT'S PLAN OF CARE AND DISPOSITION. BASED ON HISTORY OF PRESENT ILLNESS, AND PHYSICAL EXAM, PATIENT WILL BE DISCHARGED HOME. DISCUSSED PLAN FOR DISCHARGE HOME WITH RX [CLINDAMYCIN AND TRIAMCINOLONE CREAM]. MEDICATION WARNINGS GIVEN. SHARED DECISION MAKING: DISCUSSED WITH PATIENT THAT THEIR WORKUP WAS NORMAL. PATIENT INSTRUCTED TO FOLLOW UP WITH PRIMARY CARE PROVIDER IN 1-2 DAYS FOR RE- EVALUATION OF SYMPTOMS. PATIENT VERBALIZES UNDERSTANDING TO RETURN TO ED FOR NEW OR WORSENING SYMPTOMS OR IF FOLLOW UP WITH PCP CANNOT BE OBTAINED. PATIENT FEELS COMFORTABLE GOING HOME AT THIS TIME. ALL QUESTIONS ADDRESSED AT TIME OF DISCHARGE. Time of 1ST Reevaluation: 14:00 Reevaluation 1ST: Improved Patient Education/Counseling: Diagnosis, Treatment, Need For Follow Up Family Education/Counseling: Diagnosis, Treatment, Need For Follow Up Medical Screening: No EMC Exist At This Time SEPSIS Sepsis Screen Date sepsis recognized/suspect: Oct 16, 2025 Time Sepsis recognized/suspect: 1238 Recent Procedure: No On Antibiotic Therapy: No Respiratory Rate >20: No Heart Rate >90: No Temp<36 C (96.8 F) or >38.3 C: No SBP <90 or MAP <65 mmHG: No New Acute Mental Status Change: No Is the patient on CPAP, BIPAP,: No Vital Signs Date Time Temp Pulse Resp B/P (MAP) Pulse Ox O2 Delivery O2 Flow Rate FiO2 10/16/25 12:36 98.0 76 16 121/67 95 98.0 10/16/25 12:36 98.0 76 16 121/67 (85) 95 98.0 Departure 1 Departure Time of Disposition: 14:00 Impression: Primary Impression: Contact dermatitis Qualified Codes: L23.9 - Allergic contact dermatitis, unspecified cause Additional Impression: Suspected soft tissue infection Disposition: 01 HOME / SELF CARE / HOMELESS Condition: Stable Additional Instructions: FOLLOW-UP WITH PCP IN 1 TO 2 DAYS. TAKE MEDICATIONS PRESCRIBED. RETURN TO ED FOR ANY NEW OR WORSENING SYMPTOMS. e-Prescriptions Fluocinonide (Lidex) 0.05 % Cre 1 APPLIC TOP BID, #60 GRAMS Prov: TRACEY VELASCO 10/16/25 Clindamycin Hcl (Clindamycin Hcl) 300 Mg Cap 1 CAP PO TID, #24 CAP Prov: TRACEY VELASCO 10/16/25 Discharged With: Self Critical Care Note Critical Care Time?: No Stability Stability form required: No I personally scribed for TRACEY VELASCO ([email or web address]) on 10/16/25 at 13:47. Electronically submitted by Jamie Villa ([email or web address]). TRACEY VELASCO Oct 16, 2025 13:47
[2025-10-16] MEDS ORDERED: FLUO0.05 TOP (13:48)
[2025-10-16] MEDS ORDERED: CLIN1CAP70 PO (13:48)
== END 2025-10-16 13:51 | disposition home or self-care (01) ==
LOC: ER 12:26
DX: L23.9 Allergic contact dermatitis, unspecified cause (principal); I10 Essential (primary) hypertension; E78.5 Hyperlipidemia, unspecified; I48.91 Unspecified atrial fibrillation; Z79.899 Other long term (current) drug therapy; Z95.0 Presence of cardiac pacemaker; Z87.440 Personal history of urinary (tract) infections; Z79.82 Long term (current) use of aspirin